=== PATIENT | female | born 1970 | race Caucasian/White ===

== ENCOUNTER 2020-06-27 04:43 | Emergency (ER) | payer SELFPAY ==
[~2020-06-27] VITALS: Ht 157.5 cm; Wt 59.0 kg
[2020-06-27 04:53] VITALS: Ht 157.5 cm; Wt 59.0 kg
[2020-06-27 06:02] VITALS: BP 129/79
== END 2020-06-27 06:40 | disposition home or self-care (01) ==
LOC: ED 04:43
DX: R13.10 Dysphagia, unspecified (principal); T43.205A Adverse effect of unspecified antidepressants, initial encounter; Y92.89 Other specified places as the place of occurrence of the external cause
CPT/HCPCS: J1100; J1200